=== PATIENT | female | born 1985 | race Caucasian/White ===

== ENCOUNTER 2018-12-27 11:48 | Emergency (ER) | payer OTHER ==
[2018-12-27 12:17] VITALS: BMI 33.1
[2018-12-27 12:19] VITALS: TEMP 98.8; O2SAT 100
[2018-12-27] MEDS ORDERED: Aspirin 325 mg EC Tablets PO STA (12:46)
--- NOTE | 2018-12-27 12:59 | C.PDOC ---
History Of Present Illness 33 year old female presents to ED with complaint of back pain for the past 4 days. Patient describes that pain as pinching, radiating to both sides of her rib cage, and a 10/10 in severity. Patient states that she experiences pain when she takes deep breathes. She stares that she took an Advil at 9:30 am this morning. 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 Patient states that her right side hurts more than her left. Patient states that she had a fever 2 weeks ago that has since resolved. Patient denies being on any control. Patient denies heavy lifting, injury, hematuria, dysuria, and frequency. Chief Complaint (Nursing): Back Pain History Per: Patient History/Exam Limitations: no limitations Onset/Duration Of Symptoms: Days (4) Current Symptoms Are (Timing): Still Present Quality Of Discomfort: Other (pinching sensation) Pain Scale Rating Of: 10 Previous Symptoms: None Associated Symptoms: denies: New Weakness, New Numbness Exacerbating Factor(s): Other (deep breathing) Past Medical History Reviewed: Historical Data, Nursing Documentation, Vital Signs Vital Signs: Last Vital Signs Temp 98.8 F 12/27/18 12:18 Pulse 87 12/27/18 12:18 Resp 17 12/27/18 12:18 BP 119/79 12/27/18 12:18 Pulse Ox 100 12/27/18 12:18 - Medical History PMH: No Chronic Diseases Surgical History: Appendectomy Family History: States: Unknown Family Hx - Social History Hx Alcohol Use: Yes Hx Substance Use: No Review Of Systems Constitutional: Negative for: Fever, Chills, Weakness Cardiovascular: Positive for: Other (pain to the bilateral rib cage, pain to the right more than the left side) Respiratory: Negative for: Cough Musculoskeletal: Positive for: Back Pain Neurological: Negative for: Weakness, Numbness, Dizziness Physical Exam - Physical Exam Appears: Non-toxic, No Acute Distress Skin: Normal Color, Warm, Dry Head: Atraumatic, Normacephalic Neck: Normal ROM, Supple Chest: Symmetrical, No Deformity, Other (pain to the bilateral rib cage) Cardiovascular: Rhythm Regular, No Murmur Respiratory: No Accessory Muscle Use, No Rales, No Rhonchi, No Wheezing Gastrointestinal/Abdominal: Soft, No Tenderness Extremity: No Normal ROM (decreased ROM secondary to pain ), Other (pain with adduction of the shoulders) Neurological/Psych: Oriented x3, Normal Speech, Normal Cognition ED Course And Treatment - Laboratory Results Result Diagrams: 12/27/18 13:14 12/27/18 13:14 ECG: Interpreted By Me, Viewed By Me ECG Rhythm: Sinus Rhythm ECG Interpretation: Normal Rate From EC O2 Sat by Pulse Oximetry: 100 (in RA) - Other Rad CXR X-Ray: Interpreted by Me, Viewed By Me Interpretation: Accession No. : [id number]. Patient Name / ID : RASHEEDA BARTON / [id number]. Exam Date : 12/27/2018 12:58:56 ( Approved ). Study Comment : Sex / Age : F / 33Y. Creator : devon sanchez. Dictator : Praveena Eden MD. Laboratory Scientist : Mixing Machine Tender : Praveena Eden MD. Approver2 : Report Date : 12/27/2018 13:05:17. My Comment : . HISTORY: pain radiating to arm. COMPARISON: No prior. TECHNIQUE: Chest PA and lateral. FINDINGS: LUNGS: Subtle opacity at the right lower lobe may reflect atelectasis or developing pneumonia. Please note that chest x-ray has limited sensitivity for the detection of pulmonary masses. PLEURA: No significant pleural effusion identified. No definite pneumothorax . CARDIOVASCULAR: The cardiomediastinal silhouette appears within normal limits of size. No atherosclerotic calcification present. OSSEOUS STRUCTURES: No acute osseous abnormality identified. VISUALIZED UPPER ABDOMEN: Unremarkable. OTHER FINDINGS: None. IMPRESSION: Subtle opacity at the right lower lobe may reflect atelectasis or developing pneumonia. Correlate clinically. - CT Scan/US PE protocol Other Rad Studies (CT/US): Read By Radiologist, Radiology Report Reviewed CT/US Interpretation: Accession No. : [id number]. Patient Name / ID : RASHEEDA BARTON / [id number]. Exam Date : 12/27/2018 14:55:35 ( Approved ). Study Comment : Sex / Age : F / 33Y. Creator : Praveena Eden MD. Dictator : Praveena Eden MD. Laboratory Scientist : Mixing Machine Tender : Praveena Eden MD. Approver2 : Report Date : 12/27/2018 15:25:35. My Comment : . Date of service: 12/27/2018. CTA chest PE protocol. Indication: r/o PE. Technique: Contiguous axial images were obtained through the chest with intravenous contrast enhancement. Sagittal and coronal reconstructions were generated and reviewed. This CT exam was performed using 1 or more of the following dose reduction techniques: Automated exposure control, adjustment of the MAA and/or kV according to patient size, and/or use of iterative reconstruction technique. IV contrast: 100 cc Visipaque 320 IV. . Radiation dose (DLP): 546.33 MGy-cm. Comparison: Chest x-ray performed earlier the same day. Findings: Visualized portions of the inferior thyroid gland appear unremarkable. The mediastinal and hilar vascular structures appear within normal limits. The heart appears within normal limits of size. No large central or segmental pulmonary embolus evident. No focal consolidation. No pleural effusion. No pneumothorax. No suspicious pulmonary nodules measuring greater than 5 mm. Limited visualized portions of the upper abdomen appear grossly unremarkable. No acute osseous abnormality is detected. Impression: No acute findings identified. Suspected infiltrate described on chest x-ray performed earlier the same day presumably related to confluence of shadows. Medical Decision Making Medical Decision Making: Impression: 33 year old female presents to ED with complaint of back pain for the past 4 days Plan: Patient given Aspirin PO EKG -nsr; no acute changes Labs ordered and unremarkable CXR - noted opacity on right CT revealed no acute findings d/w patient results will treat with zpack and naproxen advised to follow up with pmd patient verbalized understanding and is in agreement with plan patient is stable for discharge Disposition Counseled Patient/Family Regarding: Studies Performed, Diagnosis, Need For Followup, Rx Given - Disposition Referrals: [facility] [Outside] Disposition: HOME/ ROUTINE Disposition Time: 15:48 Condition: STABLE Additional Instructions: start Naproxen and Azithromycin as prescribed Rest and Hydration Follow up in clinic in 1-2 days Return to the ED if symptoms worsen Prescriptions: Azithromycin 250 mg PO DAILY #4 tablet Naproxen [Naprosyn] 500 mg PO BID #30 tablet Instructions: Costochondritis (DC) Forms: [employer] (Palauan) Print Language: BELARUSIAN - Clinical Impression Clinical Impression: Chest pain, Costochondritis - PA / VOCATIONAL REHABILITATION TEACHER / Resident Statement MD/DO has reviewed & agrees with the documentation as recorded. (Kate Pierce) - Scribe Statement The provider has reviewed the documentation as recorded by the Scribe (Kate Pierce) All medical record entries made by the Scribe were at my direction and personally dictated by me. I have reviewed the chart and agree that the record accurately reflects my personal performance of the history, physical exam, medical decision making, and the department course for this patient. I have also personally directed, reviewed, and agree with the discharge instructions and disposition.
--- NOTE | 2018-12-27 13:13 | RAD ---
HISTORY: pain radiating to arm COMPARISON: No prior. TECHNIQUE: Chest PA and lateral FINDINGS: LUNGS: Subtle opacity at the right lower lobe may reflect atelectasis or developing pneumonia. Please note that chest x-ray has limited sensitivity for the detection of pulmonary masses. PLEURA: No significant pleural effusion identified. No definite pneumothorax . CARDIOVASCULAR: The cardiomediastinal silhouette appears within normal limits of size. No atherosclerotic calcification present. OSSEOUS STRUCTURES: No acute osseous abnormality identified. VISUALIZED UPPER ABDOMEN: Unremarkable. OTHER FINDINGS: None. IMPRESSION: Subtle opacity at the right lower lobe may reflect atelectasis or developing pneumonia. Correlate clinically.
[2018-12-27 13:19] LABS: BASO # 0.1 K/uL (0.0-0.2); BASO % 0.8 % (0.0-2.0); EOS # 0.1 K/uL (0.0-0.7); EOS % 0.8 % (0.0-4.0); LYMPH # 1.5 K/uL (1.0-4.3); LYMPH % 22.4 % (20.0-40.0); MEAN CORPUSCULAR HEMOGLOBIN 19.6 pg (27.0-31.0); MEAN CORPUSCULAR HGB CONC 29.2 g/dL (33.0-37.0); MEAN PLATELET VOLUME 7.8 fL (7.2-11.7); MONO # 0.4 K/uL (0.0-0.8); MONO % 6.3 % (0.0-10.0); NEUT # 4.7 K/uL (1.8-7.0); NEUT % 69.7 % (50.0-75.0); RBC 4.08 Mil/uL (3.80-5.20); RED CELL DISTRIBUTION WIDTH 20.5 % (11.5-14.5); WHITE BLOOD COUNT 6.7 K/uL (4.8-10.8)
[2018-12-27 13:22] LABS: MEAN CELL VOLUME 66.9 fL (81.0-99.0)
[2018-12-27 13:44] LABS: ALB/GLOB RATIO 1.2 (1.0-2.1); ALBUMIN 4.5 g/dL (3.5-5.0); ALT/SGPT 12 U/L (9-52); AST/SGOT 24 U/L (14-36); BLOOD UREA NITROGEN 10 mg/dL (7-17); CALCIUM 8.9 mg/dl (8.6-10.4); GFR NON-AFRICAN AMERICAN > 60
[2018-12-27] MEDS ORDERED: Iodixanol 320 MG/ML 100 ML BOTTLE IV ONE (14:59)
--- NOTE | 2018-12-27 15:29 | CT ---
Date of service: 12/27/2018 CTA chest PE protocol Indication: r/o PE Technique: Contiguous axial images were obtained through the chest with intravenous contrast enhancement. Sagittal and coronal reconstructions were generated and reviewed. This CT exam was performed using 1 or more of the following dose reduction techniques: Automated exposure control, adjustment of the MAA and/or kV according to patient size, and/or use of iterative reconstruction technique. IV contrast: 100 cc Visipaque 320 IV Radiation dose (DLP): 546.33 MGy-cm. Comparison: Chest x-ray performed earlier the same day. Findings: Visualized portions of the inferior thyroid gland appear unremarkable. The mediastinal and hilar vascular structures appear within normal limits. The heart appears within normal limits of size. No large central or segmental pulmonary embolus evident. No focal consolidation. No pleural effusion. No pneumothorax. No suspicious pulmonary nodules measuring greater than 5 mm. Limited visualized portions of the upper abdomen appear grossly unremarkable. No acute osseous abnormality is detected. Impression: No acute findings identified. Suspected infiltrate described on chest x-ray performed earlier the same day presumably related to confluence of shadows.
[2018-12-27 16:01] VITALS: BP 153/93; PULSE 70; RESP 16
--- NOTE | 2018-12-29 06:40 | CARD ---
APPROVED REPORT Date of service: 12/27/2018 EKG Measurement Heart [id number] <Conclusion> Normal sinus rhythm Normal ECG
== END 2018-12-27 16:01 | disposition home or self-care (01) ==
LOC: C.ER 11:48
DX: M94.0 Chondrocostal junction syndrome [Tietze] (principal); R07.9 Chest pain, unspecified
CPT/HCPCS: 71046; 71275; 80053; 81025; 84484; 85025; 93005; 99284; Q9967